=== PATIENT | female | born 1975 | race Caucasian/White ===

== ENCOUNTER 2018-12-17 16:18 | Emergency (ER) | payer OTHER ==
[~2018-12-17] VITALS: Ht 154.9 cm; Wt 117.9 kg
[2018-12-17 16:53] LABS: Source, Urine Clean Catch
[2018-12-17 17:01] LABS: Bilirubin, Urine Neg (Neg); Blood, Urine Neg (Neg); Glucose Qualitative, Urine Neg (Neg); Ketones, Urine Neg (Neg); Leukocyte Esterase, Urine 1+ (Neg); Nitrite, Urine Neg (Neg); Protein, Urine 2+ (Neg); Urobilinogen, Urine NORM (Normal)
[2018-12-17] MEDS ORDERED: QUET200 PO (17:10)
[2018-12-17] MEDS ORDERED: ATOM25 PO (17:11)
[2018-12-17] MEDS ORDERED: LISI20 PO (17:11)
[2018-12-17] MEDS ORDERED: CLON1 PO (17:11)
[2018-12-17] MEDS ORDERED: Pyridium200 MG PO (17:15)
[2018-12-17] MEDS ORDERED: CEPH500 PO (17:15)
[2018-12-17 17:16] LABS: Appearance, Urine Hazy (Clear); Color, Urine Yellow (P-Yellow)
[2018-12-17 17:17] LABS: Mucus Mod (0-Heavy); Squamous Epithelial Cells Many /hpf (Few)
[2018-12-17 17:18] LABS: Bacteria Mod /hpf; Red Blood Cells, Urine 0-2 /hpf (0-2)
== END 2018-12-17 17:35 | disposition home or self-care (01) ==
LOC: ER 16:18
PROVIDERS: Physician Assistant
DX: J02.0 Streptococcal pharyngitis (principal); R30.0 Dysuria
CPT/HCPCS: 81001; 87086; 87430; 99283; J1100

== ENCOUNTER 2021-02-03 07:26 | Emergency (ER) | payer OTHER ==
[~2021-02-03] VITALS: Ht 154.9 cm; Wt 117.9 kg
[~2021-02-03 07:26] MED LIST: ATOM25 PO; CEPH500 PO; CLON1 PO; LISI20 PO; Pyridium200 MG PO; QUET200 PO
[2021-02-03] MEDS ORDERED: DULO60 PO (07:59)
[2021-02-03] MEDS ORDERED: QUET200 PO (07:59)
[2021-02-03] MEDS ORDERED: LISI20 PO (08:00)
[2021-02-03 08:13] LABS: BASOPHILS ABSOLUTE AUTO 0.04 K/mm3 (0.00-0.23); BASOPHILS PERCENT AUTO 1 % (0-2); EOSINOPHILS ABSOLUTE AUTO 0.07 K/mm3 (0.00-0.68); EOSINOPHILS PERCENT AUTO 1 % (0-6); Hematocrit 34.5 % (33.0-51.0); Hemoglobin 11.6 g/dL (11.5-16.0); IMMATURE GRAN ABSOLUTE AUTO 0.05 K/mm3 (0.00-0.10); IMMATURE GRAN PERCENT AUTO 1 % (0-1); LYMPHOCYTES ABSOLUTE AUTO 0.76 K/mm3 (0.84-5.20); LYMPHOCYTES PERCENT AUTO 9 % (21-46); MONOCYTES ABSOLUTE AUTO 0.63 K/mm3 (0.16-1.47); MONOCYTES PERCENT AUTO 8 % (4-13); Mean Corpuscular HGB 29.2 pg (26.0-34.0); Mean Corpuscular HGB Conc 33.6 g/dL (31.5-36.5); Mean Corpuscular Volume 87 fL (80-100); NEUTROPHILS ABSOLUTE AUTO 6.78 K/mm3 (1.96-9.15); NEUTROPHILS PERCENT AUTO 81 % (41-73); RDW Coefficient Variation 13.8 % (11.7-14.2); RDW Standard Deviation 43.7 fL (35.1-46.3); Red Blood Cell Count 3.97 M/mm3 (3.80-5.20); White Blood Cell Count 8.33 K/mm3 (4.00-11.30)
[2021-02-03 08:17] LABS: Mean Platelet Volume 11.1 fL (9.1-12.4); Platelet Count 248 K/mm3 (150-400)
[2021-02-03 08:19] LABS: Alanine Aminotransfer (ALT/SGP 18 U/L (12-78); Albumin, Blood 3.1 g/dL (3.4-5.0); Albumin/Globulin Ratio 0.7 (0.8-1.8); Alk Phos 62 U/L (50-136); Anion Gap 6 mmol/L (6-16); Aspartate Aminotrans (AST/SGOT 21 U/L (12-37); Bilirubin, Total 0.8 mg/dL (0.1-1.0); Blood Urea Nitrogen 15 mg/dL (8-24); Bun/Creatinine Ratio 26.2 (12.0-20.0); CO2, Blood 18 mmol/L (21-32); Calcium, Blood 8.3 mg/dL (8.5-10.1); Chloride, Blood 111 mmol/L (98-108); Creatinine, Blood 0.57 mg/dL (0.40-1.00); Globulin, Blood 4.2 g/dL (2.2-4.0); Glomerular Filtration Rate >60 (60-); Glucose, Blood 102 mg/dL (70-99); Potassium, Blood 3.8 mmol/L (3.5-5.5); Sodium, Blood 135 mmol/L (136-145); Total Protein, Blood 7.3 g/dL (6.4-8.2)
[2021-02-03] MEDS ORDERED: Zofran4 MG PO (09:12)
== END 2021-02-03 09:15 | disposition home or self-care (01) ==
LOC: ER 07:26
PROVIDERS: Emergency Medicine
DX: J06.9 Acute upper respiratory infection, unspecified (principal); R19.7 Diarrhea, unspecified; Z20.822 Contact with and (suspected) exposure to COVID-19; Z79.899 Other long term (current) drug therapy
CPT/HCPCS: 36415; 80053; 85025; 93005; 93010; 99285-25

== ENCOUNTER 2021-06-29 10:59 | Emergency (ER) | payer OTHER ==
[~2021-06-29] VITALS: Ht 154.9 cm; Wt 113.4 kg
[~2021-06-29 10:59] MED LIST changes: +DULO60 PO; +Zofran4 MG PO
[2021-06-29] MEDS ORDERED: LISI20 PO (11:13)
[2021-06-29] MEDS ORDERED: QUET100 PO (11:13)
[2021-06-29] MEDS ORDERED: HYDCHL25 PO (11:14)
== END 2021-06-29 11:25 | disposition home or self-care (01) ==
LOC: ER 10:59
DX: Z76.0 Encounter for issue of repeat prescription (principal)

== ENCOUNTER 2021-07-07 22:17 | Emergency (ER) | payer OTHER ==
[~2021-07-07] VITALS: Ht 154.9 cm; Wt 113.4 kg
[~2021-07-07 22:17] MED LIST changes: +HYDCHL25 PO; +QUET100 PO
== END 2021-07-08 01:00 | disposition left against medical advice (07) ==
LOC: ER 22:17
DX: Z53.21 Procedure and treatment not carried out due to patient leaving prior to being seen by health care provider (principal)

== ENCOUNTER 2021-08-15 12:03 | Inpatient (IN) | payer OTHER ==
[~2021-08-15] VITALS: Ht 154.9 cm; Wt 108.9 kg
[2021-08-15 13:27] LABS: BASOPHILS ABSOLUTE AUTO 0.04 K/mm3 (0.00-0.23); BASOPHILS PERCENT AUTO 0 % (0-2); EOSINOPHILS ABSOLUTE AUTO 0.12 K/mm3 (0.00-0.68); EOSINOPHILS PERCENT AUTO 1 % (0-6); Hematocrit 40.6 % (33.0-51.0); Hemoglobin 13.8 g/dL (11.5-16.0); IMMATURE GRAN ABSOLUTE AUTO 0.02 K/mm3 (0.00-0.10); IMMATURE GRAN PERCENT AUTO 0 % (0-1); LYMPHOCYTES ABSOLUTE AUTO 1.78 K/mm3 (0.84-5.20); LYMPHOCYTES PERCENT AUTO 17 % (21-46); MONOCYTES ABSOLUTE AUTO 0.58 K/mm3 (0.16-1.47); MONOCYTES PERCENT AUTO 5 % (4-13); Mean Corpuscular HGB 28.1 pg (26.0-34.0); Mean Corpuscular Volume 83 fL (80-100); Mean Platelet Volume 10.5 fL (9.1-12.4); NEUTROPHILS ABSOLUTE AUTO 8.22 K/mm3 (1.96-9.15); NEUTROPHILS PERCENT AUTO 76 % (41-73); Platelet Count 493 K/mm3 (150-400); RDW Coefficient Variation 14.9 % (11.7-14.2); RDW Standard Deviation 44.4 fL (35.1-46.3); Red Blood Cell Count 4.91 M/mm3 (3.80-5.20); White Blood Cell Count 10.76 K/mm3 (4.00-11.30)
[2021-08-15 13:46] LABS: Alanine Aminotransfer (ALT/SGP 16 U/L (12-78); Albumin, Blood 3.5 g/dL (3.4-5.0); Albumin/Globulin Ratio 0.7 (0.8-1.8); Alk Phos 89 U/L (50-136); Anion Gap 7 mmol/L (6-16); Aspartate Aminotrans (AST/SGOT 12 U/L (12-37); Bilirubin, Total 0.6 mg/dL (0.1-1.0); Blood Urea Nitrogen 10 mg/dL (8-24); Bun/Creatinine Ratio 12.5 (12.0-20.0); CO2, Blood 27 mmol/L (21-32); Calcium, Blood 9.3 mg/dL (8.5-10.1); Chloride, Blood 104 mmol/L (98-108); Globulin, Blood 4.8 g/dL (2.2-4.0); Glomerular Filtration Rate >60 (60-); Glucose, Blood 120 mg/dL (70-99); Potassium, Blood 3.5 mmol/L (3.5-5.5); Sodium, Blood 138 mmol/L (136-145); Total Protein, Blood 8.3 g/dL (6.4-8.2)
--- NOTE | 2021-08-15 17:30 | NUR ---
PT. ADMITTED TO ROOM #229 FROM ER VIA W/C AT 1615. C/O 10/ PAIN, UNRELIEVED WITH TORADOL, GIVEN UPON ARRIVAL. PATIENT CRYING OUT "I CANT TAKE THIS". AMBULATE TO BR AND VOID, STATES SHE IS NAUSEATED AND NEEDS HER PAIN UNDER CONTROL. FENTANYL 25MCG AND ZOFRAN GIVEN FOR RELIEF. PATIENT IS RESTING AT THIS TIME AND VERBALIZE RELIEF. STATES THE PAIN IN HER ABDOMEN IS LIKE SHARP STABBING KNIFES. INSTRUCTED PT. TO CALL FOR NURSE TO ASSIST WITH IV TO BR. PT. VERBALIZE UNDERSTANDING. CALL LIGHT IN REACH AFTER INSTRUCTION.
[2021-08-16 04:55] LABS: BASOPHILS ABSOLUTE AUTO 0.04 K/mm3 (0.00-0.23); BASOPHILS PERCENT AUTO 1 % (0-2); EOSINOPHILS PERCENT AUTO 4 % (0-6); Hematocrit 34.1 % (33.0-51.0); Hemoglobin 11.4 g/dL (11.5-16.0); IMMATURE GRAN ABSOLUTE AUTO 0.02 K/mm3 (0.00-0.10); IMMATURE GRAN PERCENT AUTO 0 % (0-1); LYMPHOCYTES ABSOLUTE AUTO 2.66 K/mm3 (0.84-5.20); LYMPHOCYTES PERCENT AUTO 34 % (21-46); MONOCYTES ABSOLUTE AUTO 0.56 K/mm3 (0.16-1.47); MONOCYTES PERCENT AUTO 7 % (4-13); Mean Corpuscular HGB 28.4 pg (26.0-34.0); Mean Corpuscular HGB Conc 33.4 g/dL (31.5-36.5); Mean Corpuscular Volume 85 fL (80-100); Mean Platelet Volume 10.8 fL (9.1-12.4); NEUTROPHILS PERCENT AUTO 55 % (41-73); Platelet Count 350 K/mm3 (150-400); RDW Standard Deviation 46.1 fL (35.1-46.3); Red Blood Cell Count 4.02 M/mm3 (3.80-5.20); White Blood Cell Count 7.88 K/mm3 (4.00-11.30)
--- NOTE | 2021-08-16 05:02 | NUR ---
SHIFT SUMMARY: PT IN BED EYES CLOSED RESTING. VS WNL WITH NO DISTRESS NOTED. IV SITE PATENT C/D/I. MEDICATED FOR PAIN REMAINS WITH EYES CLOSED RESTING. MONITORING AND MAINTAIN ALL PRECATIONS.
[2021-08-16 05:15] LABS: Anion Gap 6 mmol/L (6-16); Blood Urea Nitrogen 13 mg/dL (8-24); Bun/Creatinine Ratio 16.3 (12.0-20.0); CO2, Blood 25 mmol/L (21-32); Calcium, Blood 8.4 mg/dL (8.5-10.1); Chloride, Blood 109 mmol/L (98-108); Glomerular Filtration Rate >60 (60-); Glucose, Blood 92 mg/dL (70-99); Potassium, Blood 3.2 mmol/L (3.5-5.5); Sodium, Blood 140 mmol/L (136-145)
--- NOTE | 2021-08-16 11:35 | NUR ---
ARRIVAL TO UNIT PT ARRIVED TO UNIT FROM PACU, AA0X4 A LITTLE GROGGY. TOLERATING PO WATER AND CRACKERS WELL. PAIN TOLERABLE AT 3/10. PT WILL CALL IF PAIN STARTS TO INCREASE. PT REPORTS SLIGHT URGE TO VOID BUT DOES NOT WANT TO STAND JUST YET. CALL LIGHT IN REACH, CURRENTLY ASLEEP IN BED. CELESTE PAD SCANT DRAINAGE ON ARRIVAL.
--- NOTE | 2021-08-16 17:03 | NUR ---
SHIFT SUMMARY AA0X4. PAIN MANAGED PER EMAR. PT TOLERATING WELL. STARTED ON WATER AND ICE CHIPS PT STATED A SMALL INCREASE IN PAIN IF SHE ATE TO FAST BUT DENIES OTHERWISE. SHE HAS BEEN PASSING FLATUS, AMBULATING WELL IN ROOM. TAKING SMALL WALKS. PLAN IS FOR SMALL BOWEL FOLLOW THROUGH TOMORROW.
[2021-08-17 04:44] LABS: Anion Gap 4 mmol/L (6-16); Blood Urea Nitrogen 10 mg/dL (8-24); Bun/Creatinine Ratio 14.5 (12.0-20.0); CO2, Blood 26 mmol/L (21-32); Calcium, Blood 8.2 mg/dL (8.5-10.1); Chloride, Blood 109 mmol/L (98-108); Creatinine, Blood 0.69 mg/dL (0.40-1.00); Glomerular Filtration Rate >60 (60-); Glucose, Blood 80 mg/dL (70-99); Potassium, Blood 3.5 mmol/L (3.5-5.5); Sodium, Blood 139 mmol/L (136-145)
--- NOTE | 2021-08-17 04:58 | NUR ---
SHIFT SUMMARY: PT WITH EYES CLOSED RESTING. VS WNL WITH NO SIGNS OF DISTRESS NOTED. IV SITE LEAKING. D/C IV IN LEFT AC. NEW IV STARTED IN RIGHT AC. TOLERATED MEDICATIONS WELL. IV PATENT SITE C/D/I. MONITORING AND MAINTAINING ALL PRECAUTIONS. PT COMPLAINED OF PAIN MEDICATED PER EMAR.
--- NOTE | 2021-08-17 18:43 | NUR ---
SHIFT SUMMARY SMALL BOWEL FOLLOW THROUGH TODAY SHOWED NO BLOCKAGE, PT REPORTS PAIN STILL IN ABDOMEN BUT FEELS LIKE "SOMETHING SOLID IS MOVING THROUGH MY INTENSTINES." MULTIPLE LIQUID BM'S TODAY. NO NAUSEA. TOLERATING CLEARS WITH INCREASE IN PAIN WITH EATING. HYPERTENSIVE THIS EVENING. MEDICATED PER EMAR. PT REPORTS FEELING ANXIOUS AND APPEARS ANXIOUS AT TIMES. SHE IS IND IN ROOM AND MOVES WELL, NO FEELINGS OF DIZZYNESS OR LIGHTHEADEDNESS.
--- NOTE | 2021-08-18 03:34 | NUR ---
SHIFT SUMMARY PT REPORTS THAT SHE HAD LOOSE STOOLS DURING DAYSHIFT. SHE IS STILL REPORTING ABD TENDERNESS, AND SOME NAUSEA. MEDICATED FOR PAIN AND NAUSEA PER EMAR. NO EMESIS THIS SHIFT. PT DOES SEEM SOMEWHAT ANXIOUS. PT HYPERTENSIVE, IS AWARE. SHE WAS MEDICATED JUST BEFORE SHIFT CHANGE. PARAMETERS FOR PRN HYDRALYZINE ARE FOR SBP GREATER THAN 180. PT BP STAYED UNDER THAT NUMBER AND HAS TRENDED DOWN. NO ACUTE CHANGES OVERNIGHT. PT TOLERATING CLEAR LIQUIDS. BED IN LOWEST POSITION, CALL LIGHT WITHIN REACH.
--- NOTE | 2021-08-18 12:12 | NUR ---
TOLERATING CLEAR LIQUID AND FULL LIQUID WITHOUT N/V. ADVANCED TO REG DIET.
--- NOTE | 2021-08-18 15:32 | NUR ---
PATIENT TOLERATED; LIQUID, FULL ANF REG DIETS WITHOUT ANY NAUSEA. WORRIED THAT SHE HAS NOT HAD B.M SINCE A.M. IN HALLWAY WALKING. STILL PASSING GAS. NOTIFIED AND WILL CALL HIM WHEN PATIENT HAS B.M FOR D'C ORDERS.
--- NOTE | 2021-08-18 18:29 | NUR ---
ALERT. ORIENTED. HAS HAD WATER STOOLS EARLY THIS AM WITH ONE VERY SM LIQUID AFTER EATTING. HAS BEEN WALKING HALLWAY X 2 AND PASSING GAS. PATIENT AFRAID TO GO HOME BEFORE ACTUALLY HAVING B.M. UNLABORED RESPIRATIONS. WCTM
--- NOTE | 2021-08-19 05:58 | NUR ---
SUMMARY NO NEW ISSUES NOTED. PT CONTINUES TO PASS GAS BUT NO BM. PT DENIES ABD PAIN OR N/V. PT HAS BEEN EATING WITH OUT ISSUE. PT HAS BEEN SLEEPING WELL THROUGHOUT SHIFT. CALL LIGHT IN REACH.
[2021-08-19] MEDS ORDERED: OXAYDO5 M1 PO ×2 (14:15)
--- NOTE | 2021-08-19 18:02 | NUR ---
1700 PT PATRICIO PO FOOD AND FLUID WITHOUT NAUSEA. PT REPORTS ABD PAIN IS CONTOLLED WITH PO MEDS. PT AMBULATING IN ROOM AND STEADY ON FEET. PT IS IN AGREEMENT WITH PLAN TO BE DISCHARGED TO HOME. PT DISCHARGED TO HOME AT 1700
== END 2021-08-19 17:00 | disposition home or self-care (01) | DRG 390 ==
LOC: ER 12:03 → SURS 14:18
PROVIDERS: Emergency Medicine; Family Medicine; Internal Medicine; ADMIT Internal Medicine
DX: K56.600 Partial intestinal obstruction, unspecified as to cause (principal); F15.10 Other stimulant abuse, uncomplicated; E87.6 Hypokalemia; F31.9 Bipolar disorder, unspecified; F20.9 Schizophrenia, unspecified; F41.8 Other specified anxiety disorders; I10 Essential (primary) hypertension; Z90.710 Acquired absence of both cervix and uterus; Z98.890 Other specified postprocedural states; Z98.891 History of uterine scar from previous surgery; Z79.899 Other long term (current) drug therapy
CPT/HCPCS: 36415; 74176; 74250; 80048; 80053; 83690; 85025; 93005; 93010; 96374; 96375; 99285-25; A9270; J0360; J1170; J1885; J2405; J3010; J3480; J7030

== ENCOUNTER 2021-08-21 11:36 | Emergency (ER) | payer OTHER ==
[~2021-08-21] VITALS: Ht 154.9 cm; Wt 104.3 kg
[~2021-08-21 11:36] MED LIST changes: +OXAYDO5 M1 PO
[2021-08-21 12:24] LABS: Source, Urine Clean Catch
[2021-08-21 12:30] LABS: Bilirubin, Urine Neg (Neg); Blood, Urine 3+ (Neg); Glucose Qualitative, Urine Neg (Neg); Ketones, Urine Neg (Neg); Leukocyte Esterase, Urine 3+ (Neg); Nitrite, Urine Neg (Neg); Protein, Urine 2+ (Neg); Urobilinogen, Urine NORM (Normal)
[2021-08-21 12:43] LABS: Appearance, Urine Hazy (Clear); Color, Urine Pale Yellow (P-Yellow)
[2021-08-21 12:44] LABS: Bacteria Mod /hpf; Squamous Epithelial Cells Rare /hpf (Few); Yeast/Fungi Urine Rare /hpf
[2021-08-21 13:07] LABS: BASOPHILS ABSOLUTE AUTO 0.08 K/mm3 (0.00-0.23); BASOPHILS PERCENT AUTO 1 % (0-2); EOSINOPHILS ABSOLUTE AUTO 0.22 K/mm3 (0.00-0.68); EOSINOPHILS PERCENT AUTO 3 % (0-6); Hematocrit 39.1 % (33.0-51.0); IMMATURE GRAN ABSOLUTE AUTO 0.02 K/mm3 (0.00-0.10); IMMATURE GRAN PERCENT AUTO 0 % (0-1); LYMPHOCYTES PERCENT AUTO 32 % (21-46); MONOCYTES ABSOLUTE AUTO 0.46 K/mm3 (0.16-1.47); MONOCYTES PERCENT AUTO 6 % (4-13); Mean Corpuscular HGB 28.3 pg (26.0-34.0); Mean Corpuscular HGB Conc 33.2 g/dL (31.5-36.5); Mean Corpuscular Volume 85 fL (80-100); Mean Platelet Volume 10.9 fL (9.1-12.4); NEUTROPHILS PERCENT AUTO 57 % (41-73); Platelet Count 385 K/mm3 (150-400); RDW Coefficient Variation 14.5 % (11.7-14.2); Red Blood Cell Count 4.59 M/mm3 (3.80-5.20); White Blood Cell Count 7.18 K/mm3 (4.00-11.30)
[2021-08-21 13:33] LABS: Alanine Aminotransfer (ALT/SGP 23 U/L (12-78); Albumin, Blood 3.9 g/dL (3.4-5.0); Albumin/Globulin Ratio 0.8 (0.8-1.8); Alk Phos 86 U/L (50-136); Anion Gap 5 mmol/L (6-16); Aspartate Aminotrans (AST/SGOT 12 U/L (12-37); Bilirubin, Total 0.4 mg/dL (0.1-1.0); Blood Urea Nitrogen 9 mg/dL (8-24); Bun/Creatinine Ratio 13.6 (12.0-20.0); CO2, Blood 27 mmol/L (21-32); Calcium, Blood 9.5 mg/dL (8.5-10.1); Chloride, Blood 106 mmol/L (98-108); Creatinine, Blood 0.66 mg/dL (0.40-1.00); Globulin, Blood 4.7 g/dL (2.2-4.0); Glomerular Filtration Rate >60 (60-); Glucose, Blood 117 mg/dL (70-99); Sodium, Blood 138 mmol/L (136-145); Total Protein, Blood 8.6 g/dL (6.4-8.2)
[2021-08-21 19:26] LABS: Influenza A, PCR NEGATIVE (NEGATIVE); Influenza B, PCR NEGATIVE (NEGATIVE); Resp Syncytial Virus, PCR NEGATIVE (NEGATIVE); SARS-Cov-2 (COVID-19) PCR, MMC NEGATIVE (NEGATIVE)
== END 2021-08-21 21:08 | disposition short-term general hospital (02) ==
LOC: ER 11:36
PROVIDERS: Physician Assistant
DX: N13.2 Hydronephrosis with renal and ureteral calculous obstruction (principal); N39.0 Urinary tract infection, site not specified; I10 Essential (primary) hypertension; Z79.899 Other long term (current) drug therapy
CPT/HCPCS: 0241U; 36415; 74022; 76705; 80053; 81001; 83690; 85025; 87077; 87086; 87186; 96374; 96375; 96376; 99285-25; A9270; J0696; J1885; J2270; J2405; J7030